=== PATIENT | male | born 1965 | race Caucasian/White ===

== ENCOUNTER 2018-11-14 05:12 | Inpatient (IN) | payer MEDICAID ==
[2018-11-10 12:09] LABS: BASOPHILS % (AUTO) 0.5 % (0-1); EOSINOPHILS # (AUTO) 0.2 X10'3 (0-0.9); EOSINOPHILS % (AUTO) 2.7 % (0-6); HEMATOCRIT 45.6 % (42.0-52.0); HEMOGLOBIN 15.1 g/dl (14.0-17.9); LYMPHOCYTES # (AUTO) 1.6 X10'3 (1.1-4.8); LYMPHOCYTES % (AUTO) 20.7 % (21-51); MEAN CORPUSCULAR HEMOGLOBIN 28.3 PG (27.0-31.0); MEAN CORPUSCULAR HGB CONC 33.1 g/dL (33.0-36.5); MEAN CORPUSCULAR VOLUME 85.6 FL (78-98); MONOCYTES # (AUTO) 0.6 X10'3 (0-0.9); MONOCYTES % (AUTO) 7.3 % (2-12); NEUTROPHILS # (AUTO) 5.3 X10'3 (1.8-7.7); NEUTROPHILS % (AUTO) 68.8 % (42-75); PLATELET COUNT 344 X10'3 (140-440); RED BLOOD COUNT 5.32 X10'6 (4.70-6.10); RED CELL DISTRIBUTION WIDTH 16.4 % (11.5-14.5); WHITE BLOOD COUNT 7.7 X10'3 (4.5-11.0)
[2018-11-10 12:37] LABS: ALBUMIN 3.2 G/DL (3.4-5.0); ANION GAP 10 (8-16); BLOOD UREA NITROGEN 21 MG/DL (7-18); BUN/CREATININE RATIO 19.8 (5.4-32.0); CALCIUM 9.6 MG/DL (8.5-10.1); CHLORIDE 101 MMOL/L (99-107); CREATININE 1.06 MG/DL (0.60-1.10); GLUCOSE 144 MG/DL (70-104); POTASSIUM 4.4 MMOL/L (3.5-5.1); SODIUM 136 MMOL/L (135-145); TOTAL CARBON DIOXIDE 24.9 MMOL/L (24-32); eGFR 73 ML/MIN
[2018-11-10 12:39] LABS: PARTIAL THROMBOPLASTIN TIME 43 SECONDS (22-32)
[~2018-11-14] VITALS: Ht 185.4 cm; Wt 121.8 kg
[2018-11-14] VITALS (13 sets, daily range): BP systolic 101–151; BP diastolic 63–98
[~2018-11-14 05:12] MED LIST: ENOX100D5 SUBCUT; LEVO500T2 PO; METF-950 PO; METR-159 PO; RIVA15TA PO; RIVA20TA PO; VALS40TA11 PO
[2018-11-14] MEDS ORDERED: diphenhydrAMINE 25mg capsule PO PRN ×2 (05:30→07:45)
[2018-11-14] MEDS ORDERED: LORazepam 0.5 MG tablet PO PRN (05:30)
[2018-11-14] MEDS: normal saline 1,000 ML IV SCH ×2 (05:58→09:37)
[2018-11-14] MEDS ORDERED: LIDOcaine 2% (20 mg/ml) 5ml cardiac syringe ONE (06:00)
[2018-11-14] MEDS ORDERED: papaverine 30 mg/ml 2ml inj. ONE (06:00)
[2018-11-14] MEDS ORDERED: methylPREDNISolone sod succ 1000mg vial ONE (06:00)
[2018-11-14] MEDS ORDERED: albumin (human) 25% 100 ML IV solution IV ONE (06:00)
[2018-11-14] MEDS ORDERED: potassium Cl 2 mEq/ml inj IV ONE (06:00)
[2018-11-14] MEDS ORDERED: heparin 1,000 units/ml 10ml inj ONE (06:00)
[2018-11-14] MEDS ORDERED: magnesium 1 GM/2 ML inj ONE (06:00)
[2018-11-14] MEDS ORDERED: calcium chloride 100 MG/1 ML inj IV ONE (06:00)
[2018-11-14] MEDS ORDERED: sodium bicarbonate (8.4%) 1 mEq/ml syringe ONE (06:00)
[2018-11-14] MEDS ORDERED: heparin 10,000 units/1 ML INJ ONE (06:00)
[2018-11-14] MEDS ORDERED: phenylephrine 10mg/ml inj. ONE (06:00)
[2018-11-14] MEDS ORDERED: aminocaproic acid 250 MG/1 ML inj. ONE (06:00)
[2018-11-14] MEDS ORDERED: WARF1TAB PO (06:03)
[2018-11-14] MEDS ORDERED: LOSA50TA64 PO (06:03)
[2018-11-14] MEDS ORDERED: ATOR10TA87 PO (06:03)
[2018-11-14 06:05] LABS: PARTIAL THROMBOPLASTIN TIME 33 SECONDS (22-32)
[2018-11-14] MEDS ORDERED: METF500T PO (06:09)
[2018-11-14] MEDS ORDERED: ENOX100S3 SQ (06:09)
[2018-11-14] MEDS ORDERED: iohexol 350MG/ML 100ml bottle IV ONE (06:13)
[2018-11-14] MEDS ORDERED: LIDOcaine 1% (10mg/ml)w/preservative injection 20ml MDV ONE (06:13)
[2018-11-14] MEDS ORDERED: fentaNYL/PF 50MCG/1 ML 2ML syringe ONE (06:14)
[2018-11-14] MEDS ORDERED: midazolam 2 mg/2 ml injection ONE (06:14)
[2018-11-14] MEDS ORDERED: ondansetron/PF 4mg/2ml inj IV PRN ×2 (07:10→07:45)
[2018-11-14] MEDS ORDERED: nitroGLYCERIN 0.4mg SUBLingual tab SL PRN (07:10)
[2018-11-14] MEDS ORDERED: insulin regular, human 100 UNIT in normal saline 100ml IV soln 100 ML IV SCH ×2 (07:38)
[2018-11-14] MEDS ORDERED: cefazolin/dext.iso 2gm/50ml 50 ML IV ONE (07:40)
[2018-11-14] MEDS ORDERED: gabapentin 400mg capsule PO ONE (07:40)
[2018-11-14] MEDS ORDERED: NUT.TX.IMPAIRED DIGEST FXN (Ensure Clear) 237 ML PO ONE (07:40)
[2018-11-14] MEDS ORDERED: insulin glargine (Lantus) pen - multi-dose SQ PRN (07:40)
[2018-11-14] MEDS ORDERED: dextrose 50%-water 50ml dispensing syringe IV PRN ×3 (07:40→10:15)
[2018-11-14] MEDS ORDERED: vancomycin/NS 1 GM ADD-VANTAGE 250 ML IV ONE (07:40)
[2018-11-14] MEDS ORDERED: MESSAGE TO NURSING PO ONE ×5 (07:40→10:00)
[2018-11-14] MEDS ORDERED: HYDROcodone/acetaminophen 5mg/325mg tablet PO PRN (07:45)
[2018-11-14] MEDS ORDERED: cefazolin/dext.iso 2gm/50ml 100 ML IV ONE (07:48)
[2018-11-14] MEDS ORDERED: atorvastatin 10mg tablet PO SCH (08:00)
[2018-11-14] MEDS ORDERED: losartan 50mg tablet PO SCH (08:00)
[2018-11-14] MEDS ORDERED: enoxaparin 100mg/ml syringe SQ SCH (08:00)
[2018-11-14] MEDS ORDERED: mupirocin 2% ointment 22GM NS SCH (08:00)
--- NOTE | 2018-11-14 08:51 | NUR ---
Problems reprioritized. Patient report given, questions answered & plan of care reviewed with ART, RN.
--- NOTE | 2018-11-14 09:09 | NUR ---
PATIENT TRANSFERRED TO ACCE UNIT BED 313 VIA GURNEY WITH ALL PERSONAL BELONGINGS. RECEIVING NURSE AT BEDSIDE. PATIENT MOVED OVER TO ACCE UNIT BED. REPOSITIONED FOR COMFORT. RIGHT GROIN SOFT AND NON PAINFUL TO PALPATION.
--- NOTE | 2018-11-14 09:25 | NUR ---
Pt arrived from . Pt oriented to room and placed on monitor. Pt call light within reach.
[2018-11-14 10:05] LABS: HEMATOCRIT 41.8 % (42.0-52.0); HEMOGLOBIN 13.8 g/dl (14.0-17.9); MEAN CORPUSCULAR HEMOGLOBIN 28.3 PG (27.0-31.0); MEAN CORPUSCULAR HGB CONC 33.1 g/dL (33.0-36.5); MEAN CORPUSCULAR VOLUME 85.6 FL (78-98); MEAN PLATELET VOLUME 8.9 FL (7.4-10.4); PLATELET COUNT 250 X10'3 (140-440); RED BLOOD COUNT 4.89 X10'6 (4.70-6.10); RED CELL DISTRIBUTION WIDTH 16.7 % (11.5-14.5)
[2018-11-14 10:14] LABS: HEMOGLOBIN A1C 7.6 % (4.5-6.2)
[2018-11-14] MEDS ORDERED: dextrose ORAL solution 15 GM/59 ML bottle PO PRN ×2 (10:15)
[2018-11-14] MEDS ORDERED: MESSAGE TO PHARMACY PO ONE (10:15)
[2018-11-14] MEDS ORDERED: glucagon, human recombinant 1mg kit SUBCUT PRN (10:15)
[2018-11-14] MEDS ORDERED: insulin Lispro (HumaLOG) vial - multi-dose SQ SCH (10:15)
[2018-11-14 10:21] LABS: ALBUMIN 2.9 G/DL (3.4-5.0); ANION GAP 7 (8-16); BLOOD UREA NITROGEN 16 MG/DL (7-18); BUN/CREATININE RATIO 16.5 (5.4-32.0); CALCIUM 8.6 MG/DL (8.5-10.1); CHLORIDE 103 MMOL/L (99-107); CREATININE 0.97 MG/DL (0.60-1.10); GLUCOSE 134 MG/DL (70-104); POTASSIUM 4.4 MMOL/L (3.5-5.1); SODIUM 136 MMOL/L (135-145); TOTAL CARBON DIOXIDE 25.6 MMOL/L (24-32); eGFR 80 ML/MIN
[2018-11-14 10:22] LABS: PARTIAL THROMBOPLASTIN TIME 31 SECONDS (22-32)
--- NOTE | 2018-11-14 14:49 | NUR ---
Respiratory paged for PFTs and ABG.
--- NOTE | 2018-11-14 15:05 | NUR ---
Vein mapping done, Xray done. RT will be here in a couple of hours.
[2018-11-14 16:36] LABS: ABG BASE EXCESS 3.3 mmol/L (-2.0-3.0); ABG HCO3 26.1 mmol/L (22.0-26.0); ABG OXYGEN SATURATION 96.5 % (95-98); ABG PH (T) 7.503 (7.350-7.450); ALLEN'S TEST Positive; FCOHb 0.8 % (0.5-1.5); FMetHb 0.2 % (0.3-1.12); FO2Hb 95.5 % (94-100); TOTAL HEMOGLOBIN 14.1 G/dl (14.0-18.0)
--- NOTE | 2018-11-14 18:00 | NUR ---
Patient in room MED 313. I have received report from Art, RN and had the opportunity to ask questions and assume patient care.
[2018-11-14 20:02] LABS: CLARITY,URINE CLEAR (Clear); COLOR,URINE YELLOW (Yellow); GLUCOSE, URINE NEGATIVE (Neg); KETONES,URINE NEGATIVE (Neg); LEUKOCYTE ESTERASE ,URINE NEGATIVE (Neg); NITRITES, URINE NEGATIVE (Neg); OCCULT BLOOD,URINE NEGATIVE (Neg); PH,URINE 6.5 (4.8-8.0); PROTEIN,URINE NEGATIVE (Neg)
[2018-11-14 20:04] LABS: UA COLLECTION TYPE VOIDED
[2018-11-14] MEDS ORDERED: insulin glargine (Lantus) pen - multi-dose SQ SCH (21:00)
[2018-11-15] VITALS (17 sets, daily range): BP systolic 107–134; BP diastolic 59–77
[2018-11-15] MEDS ORDERED: MESSAGE TO NURSING PO ONE ×2 (02:00→06:00)
[2018-11-15] MEDS ORDERED: famotidine 20mg tablet PO ONE (05:00)
[2018-11-15] MEDS ORDERED: LORazepam 2 mg/ml vial IV ONE (05:00)
[2018-11-15] MEDS ORDERED: ROPIVAcaine 0.5% (5mg/ml) 30ml vial ONE (05:09)
[2018-11-15 05:44] LABS: BASOPHILS % (AUTO) 0.3 % (0-1); EOSINOPHILS # (AUTO) 0.2 X10'3 (0-0.9); EOSINOPHILS % (AUTO) 3.2 % (0-6); HEMATOCRIT 43.7 % (42.0-52.0); HEMOGLOBIN 14.4 g/dl (14.0-17.9); LYMPHOCYTES # (AUTO) 1.2 X10'3 (1.1-4.8); LYMPHOCYTES % (AUTO) 16.7 % (21-51); MEAN CORPUSCULAR HEMOGLOBIN 28.4 PG (27.0-31.0); MEAN CORPUSCULAR HGB CONC 32.9 g/dL (33.0-36.5); MEAN CORPUSCULAR VOLUME 86.3 FL (78-98); MONOCYTES # (AUTO) 0.8 X10'3 (0-0.9); NEUTROPHILS % (AUTO) 68.8 % (42-75); PLATELET COUNT 243 X10'3 (140-440); RED BLOOD COUNT 5.07 X10'6 (4.70-6.10); RED CELL DISTRIBUTION WIDTH 16.6 % (11.5-14.5); WHITE BLOOD COUNT 7.2 X10'3 (4.5-11.0)
[2018-11-15] MEDS ORDERED: cefazolin/dext.iso 2gm/50ml 100 ML IV ONE (06:00)
[2018-11-15] MEDS ORDERED: vancomycin/NS 1 GM ADD-VANTAGE 250 ML IV ONE (06:00)
[2018-11-15] MEDS ORDERED: cefazolin/dext.iso 2gm/100ml 100 ML IV ONE (06:00)
[2018-11-15 06:08] LABS: ALBUMIN 3.1 G/DL (3.4-5.0); ANION GAP 9 (8-16); BLOOD UREA NITROGEN 17 MG/DL (7-18); BUN/CREATININE RATIO 14.9 (5.4-32.0); CALCIUM 8.9 MG/DL (8.5-10.1); CHLORIDE 101 MMOL/L (99-107); CREATININE 1.14 MG/DL (0.60-1.10); GLUCOSE 160 MG/DL (70-104); POTASSIUM 4.4 MMOL/L (3.5-5.1); SODIUM 135 MMOL/L (135-145); TOTAL CARBON DIOXIDE 25.5 MMOL/L (24-32); eGFR 67 ML/MIN
[2018-11-15] MEDS ORDERED: SUFENTANIL CITRATE 50 MCG/ML 2ml ampule IV ONE (06:18)
[2018-11-15] MEDS ORDERED: aminocaproic acid 250 MG/1 ML inj. ONE (06:20)
[2018-11-15] MEDS ORDERED: INSULIN R 100 UNIT in NS 100ML (1 UNIT/1 ML) BAG IV ONE (06:20)
[2018-11-15] MEDS ORDERED: nitroGLYCERIN in D5W 50mg/250ml (Tridil) infusion IV ONE (06:20)
[2018-11-15] MEDS ORDERED: isoflurane 100ml inhalation liquid IH ONE (06:20)
[2018-11-15] MEDS ORDERED: protamine sulf. 10mg/ml inj. IV ONE (06:20)
--- NOTE | 2018-11-15 06:20 | NUR ---
OR TEAM AT BEDSIDE. MEDS GIVEN ORDERED. PATIENT TAKEN DOWN TO CVOR IN BED.
[2018-11-15] MEDS ORDERED: LORazepam 2 mg/ml vial ONE (06:21)
--- NOTE | 2018-11-15 06:28 | NUR ---
Problems reprioritized. Patient report given, questions answered & plan of care reviewed with BARBARA Shrestha.
[2018-11-15] MEDS ORDERED: rocuronium 10mg/ml inj IV ONE ×3 (07:04→08:55)
[2018-11-15] MEDS ORDERED: phenylephrine 10mg/ml inj. ONE ×2 (07:06→08:55)
[2018-11-15] MEDS ORDERED: LIDOcaine 2% (20mg/ml) 5ml vial ONE (07:06)
[2018-11-15] MEDS ORDERED: propofol inj 20 ML IV ONE (07:06)
[2018-11-15 07:16] LABS: ABG BASE EXCESS -1.8 mmol/L (-2.0-3.0); ABG HCO3 21.6 mmol/L (22.0-26.0); ABG OXYGEN SATURATION 99.3 % (95-98); ABG PCO2 32.8 mmHg (35.0-45.0); ABG PH 7.437 (7.350-7.450); ABG PO2 194.4 mmHg (60.0-100.0); CL (ABG) 99 mmol/L (99-107); FCOHb 0.7 % (0.5-1.5); FMetHb 0.3 % (0.3-1.12); FO2Hb 98.3 % (94-100); GLUCOSE (ABG) 267 mg/dl (70-105); IONIZED CA (ABG) 1.14 mmol/L (1.03-1.32); K (ABG) 4.1 mmol/L (3.3-5.1); NA (ABG) 133 mmol/L (135-145); TOTAL HEMOGLOBIN 13.5 G/dl (14.0-18.0)
[2018-11-15 07:50] LABS: ABG BASE EXCESS -3.4 mmol/L (-2.0-3.0); ABG HCO3 21.2 mmol/L (22.0-26.0); ABG OXYGEN SATURATION 98.4 % (95-98); ABG PCO2 36.7 mmHg (35.0-45.0); CL (ABG) 102 mmol/L (99-107); FCOHb 0.4 % (0.5-1.5); FMetHb 0.2 % (0.3-1.12); FO2Hb 97.8 % (94-100); GLUCOSE (ABG) 166 mg/dl (70-105); IONIZED CA (ABG) 1.14 mmol/L (1.03-1.32); K (ABG) 3.8 mmol/L (3.3-5.1); NA (ABG) 132 mmol/L (135-145); TOTAL HEMOGLOBIN 12.7 G/dl (14.0-18.0)
[2018-11-15] MEDS ORDERED: ipratropium/albuterol 3ml nebule IH PRN (07:50)
[2018-11-15 08:20] LABS: ABG BASE EXCESS -1.9 mmol/L (-2.0-3.0); ABG OXYGEN SATURATION 99.7 % (95-98); ABG PH 7.378 (7.350-7.450); ABG PO2 468.1 mmHg (60.0-100.0); CL (ABG) 102 mmol/L (99-107); FCOHb 0.3 % (0.5-1.5); FMetHb 0.1 % (0.3-1.12); FO2Hb 99.3 % (94-100); GLUCOSE (ABG) 147 mg/dl (70-105); IONIZED CA (ABG) 1.05 mmol/L (1.03-1.32); K (ABG) 4.8 mmol/L (3.3-5.1); NA (ABG) 131 mmol/L (135-145); TOTAL HEMOGLOBIN 10.6 G/dl (14.0-18.0)
[2018-11-15 08:35] LABS: ABG BASE EXCESS VENOUS -4.9 mmol/L; ABG HCO3 VENOUS 20.6 mmol/L; ABG PCO2 VENOUS 39.7 mmHg; ABG PO2 VENOUS 55.9 mmHg; CL (ABG) 101 mmol/L (99-107); FCOHb VENOUS 0.4 %; FHHb VENOUS 12.9 %; FMetHb VENOUS 0.2 %; FO2Hb VENOUS 86.5 %; GLUCOSE (ABG) 136 mg/dl (70-105); IONIZED CA (ABG) 1.09 mmol/L (1.03-1.32); K (ABG) 4.4 mmol/L (3.3-5.1); NA (ABG) 132 mmol/L (135-145); TOTAL HEMOGLOBIN 10.8 G/dl (14.0-18.0)
[2018-11-15 08:50] LABS: ABG BASE EXCESS -0.7 mmol/L (-2.0-3.0); ABG HCO3 23.9 mmol/L (22.0-26.0); ABG OXYGEN SATURATION 99.8 % (95-98); ABG PCO2 39.1 mmHg (35.0-45.0); ABG PH 7.404 (7.350-7.450); ABG PO2 448.4 mmHg (60.0-100.0); CL (ABG) 101 mmol/L (99-107); FCOHb 0.3 % (0.5-1.5); FO2Hb 99.5 % (94-100); GLUCOSE (ABG) 134 mg/dl (70-105); K (ABG) 4.4 mmol/L (3.3-5.1); NA (ABG) 133 mmol/L (135-145); TOTAL HEMOGLOBIN 10.2 G/dl (14.0-18.0)
[2018-11-15 09:25] LABS: ABG BASE EXCESS -1.5 mmol/L (-2.0-3.0); ABG OXYGEN SATURATION 96.8 % (95-98); ABG PCO2 37.8 mmHg (35.0-45.0); ABG PH 7.402 (7.350-7.450); ABG PO2 93.6 mmHg (60.0-100.0); CL (ABG) 103 mmol/L (99-107); FCOHb 0.2 % (0.5-1.5); FMetHb 0.6 % (0.3-1.12); GLUCOSE (ABG) 127 mg/dl (70-105); K (ABG) 4.2 mmol/L (3.3-5.1); NA (ABG) 134 mmol/L (135-145); TOTAL HEMOGLOBIN 11.6 G/dl (14.0-18.0)
--- NOTE | 2018-11-15 09:30 | NUR ---
DM Consult: A1C 7.6. Hx T2DM and seizures r/t etoh; no tox this admit. Pt currently in OR for CABGx2. Will need DM/CABG eds once stable post-op. Addendum: 11/15/18 at [address] Amended: Links added.
[2018-11-15] MEDS ORDERED: nitroGLYCERIN-Tridil 50MG/D5W 250 ML IV PRN (09:49)
[2018-11-15] MEDS ORDERED: DOPamine 400mg/D5W 250ml 250 ML IV PRN (09:49)
[2018-11-15] MEDS ORDERED: sodium chloride 0.45% 1,000 ML IV SCH (09:49)
[2018-11-15] MEDS ORDERED: niCARDipine-NS 40mg/200ml IVPB 200 ML IV PRN (09:49)
[2018-11-15] MEDS ORDERED: acetaminophen 325mg tablet PO PRN (09:50)
[2018-11-15] MEDS ORDERED: normal saline 250ml IV soln 250 ML IV PRN (09:50)
[2018-11-15] MEDS ORDERED: insulin regular, human inj. 100 UNITS in normal saline 100ml IV soln 100 ML IV SCH ×2 (09:50)
[2018-11-15] MEDS ORDERED: sodium phosphate inj. 30 MMOL in dextrose 5%-water 250 ML IV PRN (09:50)
[2018-11-15] MEDS ORDERED: potassium Cl 20 mEq SR tablet PO PRN (09:50)
[2018-11-15] MEDS ORDERED: morphine 4 MG/ML inj SYRINge IV PRN (09:50)
[2018-11-15] MEDS ORDERED: HYDROcodone/acetaminophen 10/325mg tab PO PRN (09:50)
[2018-11-15] MEDS ORDERED: albumin (Human) 5% 250ml 250 ML IV PRN (09:50)
[2018-11-15] MEDS ORDERED: magnesium 4gm in 100ml NS 100 ML IV PRN (09:50)
[2018-11-15] MEDS ORDERED: metoclopramide 5 mg/ml inj IV PRN (09:50)
[2018-11-15] MEDS ORDERED: pantoprazole 40 MG vial IV ONE (09:50)
[2018-11-15] MEDS ORDERED: sodium phosphate inj. 15 MMOL in dextrose 5%-water 150 ML IV PRN (09:50)
[2018-11-15] MEDS ORDERED: Neutra Phos packet PO PRN (09:50)
[2018-11-15] MEDS ORDERED: dextrose 50%-water 50ml dispensing syringe IV PRN (09:50)
[2018-11-15] MEDS ORDERED: magnesium 2GM in 50ml NS 50 ML IV PRN (09:50)
--- NOTE | 2018-11-15 10:00 | NUR ---
Received to room 2041, accompanied by MDs and surgical crew. Placed on ventilator, to ekg monitor tech, arterial line and PA line pressure monitored. Chest tubes to suction at 20 cm. Jacques cath to gravity drainage. Dressings are dry and intact. See assessment record. All vasoactive drugs are infusing via central line.
[2018-11-15 10:20] LABS: ABG BASE EXCESS -1.2 mmol/L (-2.0-3.0); ABG HCO3 22.7 mmol/L (22.0-26.0); ABG OXYGEN SATURATION 95.5 % (95-98); ABG PCO2 (T) 35.5 mmHg (35.0-48.0); ABG PH (T) 7.423 (7.350-7.450); ABG PO2 (T) 79.3 mmHg (83-108); FCOHb 0.2 % (0.5-1.5); FMetHb 0.3 % (0.3-1.12); PEEP 5 cm H2O; RESPIRATORY RATE 14 b/min; RESPIRATORY RATE (OBSERVED) 14 b/min; TIDAL VOLUME 650 mL; TOTAL HEMOGLOBIN 13.5 G/dl (14.0-18.0)
[2018-11-15] MEDS ORDERED: albumin (Human) 5% 250ml 250 ML IV ONE ×2 (10:22→10:32)
[2018-11-15 10:32] LABS: BASOPHILS % (AUTO) 0.2 % (0-1); EOSINOPHILS # (AUTO) 0.1 X10'3 (0-0.9); EOSINOPHILS % (AUTO) 0.8 % (0-6); HEMATOCRIT 37.9 % (42.0-52.0); HEMOGLOBIN 12.5 g/dl (14.0-17.9); LYMPHOCYTES # (AUTO) 0.6 X10'3 (1.1-4.8); LYMPHOCYTES % (AUTO) 4.4 % (21-51); MEAN CORPUSCULAR HEMOGLOBIN 28.1 PG (27.0-31.0); MEAN CORPUSCULAR VOLUME 85.1 FL (78-98); MEAN PLATELET VOLUME 8.9 FL (7.4-10.4); MONOCYTES # (AUTO) 0.6 X10'3 (0-0.9); MONOCYTES % (AUTO) 4.1 % (2-12); NEUTROPHILS # (AUTO) 12.5 X10'3 (1.8-7.7); NEUTROPHILS % (AUTO) 90.5 % (42-75); PLATELET COUNT 205 X10'3 (140-440); RED BLOOD COUNT 4.45 X10'6 (4.70-6.10); RED CELL DISTRIBUTION WIDTH 16.5 % (11.5-14.5); WHITE BLOOD COUNT 13.8 X10'3 (4.5-11.0)
[2018-11-15 10:39] LABS: ALANINE AMINOTRANSFERASE 38 U/L (12-78); ALBUMIN 2.8 G/DL (3.4-5.0); ALBUMIN/GLOBULIN RATIO 0.8 (1.1-1.5); ALKALINE PHOSPHATASE 106 IU/L (46-116); ANION GAP 7 (8-16); ASPARTATE AMINO TRANSFERASE 29 U/L (10-37); BILIRUBIN,TOTAL 0.6 MG/DL (0.1-1.0); BLOOD UREA NITROGEN 15 MG/DL (7-18); BUN/CREATININE RATIO 14.3 (5.4-32.0); CALCIUM 8.3 MG/DL (8.5-10.1); CHLORIDE 105 MMOL/L (99-107); CREATININE 1.05 MG/DL (0.60-1.10); GLUCOSE 111 MG/DL (70-104); MAGNESIUM 2.6 MG/DL (1.5-2.4); PARTIAL THROMBOPLASTIN TIME 26 SECONDS (22-32); POTASSIUM 4.2 MMOL/L (3.5-5.1); SODIUM 137 MMOL/L (135-145); TOTAL CARBON DIOXIDE 24.7 MMOL/L (24-32); TOTAL PROTEIN 6.4 G/DL (6.4-8.2); eGFR 73 ML/MIN
[2018-11-15 11:12] LABS: ACTIVATED CLOTTING TIME 126 SEC (101-148)
[2018-11-15 11:23] LABS: ACT @ 1.70 U 326 SEC (193-297); ACT @ 2.84 U 491 SEC (260-420); BASELINE ACT 142 SEC (101-148)
[2018-11-15] MEDS: insulin regular, human 100 UNIT in normal saline 100ml IV soln 100 ML IV SCH ×4 (12:30→19:39)
[2018-11-15] MEDS: insulin Lispro (HumaLOG) vial - multi-dose SQ SCH ×2 (13:00→18:00)
[2018-11-15] MEDS: potassium Cl 20mEq/100mL bag 100 ML IV PRN ×2 (13:08→15:53)
[2018-11-15] MEDS: gabapentin 300mg capsule PO SCH ×2 (13:10→20:23)
[2018-11-15 13:25] LABS: ABG BASE EXCESS -7.6 mmol/L (-2.0-3.0); ABG HCO3 17.8 mmol/L (22.0-26.0); ABG OXYGEN SATURATION 97.5 % (95-98); ABG PCO2 (T) 35.9 mmHg (35.0-48.0); ABG PH (T) 7.314 (7.350-7.450); ABG PO2 (T) 109.4 mmHg (83-108); FMetHb 0.3 % (0.3-1.12); FO2Hb 97.2 % (94-100); MINUTE VOLUME 13 L/min; PEEP 5 cm H2O; RESPIRATORY RATE (OBSERVED) 14 b/min; TOTAL HEMOGLOBIN 12.7 G/dl (14.0-18.0)
--- NOTE | 2018-11-15 14:25 | NUR ---
Pt extubated and placed on 2 L/min O2 via nasal cannula, satting at 97%. Respirations are even and unlabored. Voice quality is clear.
[2018-11-15] MEDS: ceFAZolin 1GM/D5W- ADD-VANTAGE 50 ML IV SCH (16:52)
--- NOTE | 2018-11-15 17:05 | NUR ---
Pt dangled on edge of bed
[2018-11-15 17:12] LABS: BASOPHILS # (AUTO) 0.1 X10'3 (0-0.2); BASOPHILS % (AUTO) 0.4 % (0-1); EOSINOPHILS % (AUTO) 0.2 % (0-6); HEMATOCRIT 35.2 % (42.0-52.0); HEMOGLOBIN 11.5 g/dl (14.0-17.9); LYMPHOCYTES # (AUTO) 0.4 X10'3 (1.1-4.8); LYMPHOCYTES % (AUTO) 3.2 % (21-51); MEAN CORPUSCULAR HEMOGLOBIN 28.5 PG (27.0-31.0); MEAN CORPUSCULAR HGB CONC 32.8 g/dL (33.0-36.5); MEAN PLATELET VOLUME 9.2 FL (7.4-10.4); MONOCYTES # (AUTO) 0.4 X10'3 (0-0.9); MONOCYTES % (AUTO) 2.8 % (2-12); NEUTROPHILS # (AUTO) 12.3 X10'3 (1.8-7.7); NEUTROPHILS % (AUTO) 93.4 % (42-75); PLATELET COUNT 177 X10'3 (140-440); RED BLOOD COUNT 4.04 X10'6 (4.70-6.10); RED CELL DISTRIBUTION WIDTH 16.7 % (11.5-14.5); WHITE BLOOD COUNT 13.1 X10'3 (4.5-11.0)
[2018-11-15] MEDS: morphine 4 MG/ML inj SYRINge IV PRN ×2 (17:22→21:48)
[2018-11-15] MEDS: ondansetron/PF 4mg/2ml inj IV PRN ×2 (17:22→21:48)
[2018-11-15 17:23] LABS: ALBUMIN 3.4 G/DL (3.4-5.0); ANION GAP 9 (8-16); BLOOD UREA NITROGEN 15 MG/DL (7-18); BUN/CREATININE RATIO 13.2 (5.4-32.0); CALCIUM 8.5 MG/DL (8.5-10.1); CHLORIDE 107 MMOL/L (99-107); CREATININE 1.14 MG/DL (0.60-1.10); GLUCOSE 216 MG/DL (70-104); MAGNESIUM 1.9 MG/DL (1.5-2.4); PHOSPHORUS 2.7 MG/DL (2.3-4.5); SODIUM 138 MMOL/L (135-145); TOTAL CARBON DIOXIDE 21.7 MMOL/L (24-32); eGFR 67 ML/MIN
--- NOTE | 2018-11-15 17:39 | NUR ---
Pt became bradycardic with HR of 54. CI 1.4. Pacer turned on at rate of 80. Repeat CI 3.0
--- NOTE | 2018-11-15 18:15 | NUR ---
Patient in room ICU 2041. I have received report from BARBARA Comer (orientee) and BARBARA Shrestha) and had the opportunity to ask questions and assume patient care.
--- NOTE | 2018-11-15 18:17 | NUR ---
Problems reprioritized. Patient report given, questions answered & plan of care reviewed with BARBARA [place].
[2018-11-15] MEDS: vancomycin/NS 1 GM ADD-VANTAGE 250 ML IV SCH (20:23)
[2018-11-15] MEDS: docusate sod 100mg capsule PO SCH (20:23)
[2018-11-15] MEDS: mupirocin 2% nasal ointment 1gm UD NS SCH (20:23)
[2018-11-16] VITALS (24 sets, daily range): BP systolic 124–156; BP diastolic 67–94
[2018-11-16] MEDS: ceFAZolin 1GM/D5W- ADD-VANTAGE 50 ML IV SCH ×3 (00:05→17:05)
[2018-11-16 02:25] LABS: BASOPHILS % (AUTO) 0.1 % (0-1); EOSINOPHILS % (AUTO) 0 % (0-6); HEMATOCRIT 32.8 % (42.0-52.0); HEMOGLOBIN 10.8 g/dl (14.0-17.9); LYMPHOCYTES # (AUTO) 0.5 X10'3 (1.1-4.8); LYMPHOCYTES % (AUTO) 3.3 % (21-51); MEAN CORPUSCULAR HEMOGLOBIN 28.4 PG (27.0-31.0); MEAN CORPUSCULAR HGB CONC 32.8 g/dL (33.0-36.5); MEAN CORPUSCULAR VOLUME 86.5 FL (78-98); MEAN PLATELET VOLUME 9.1 FL (7.4-10.4); MONOCYTES # (AUTO) 0.8 X10'3 (0-0.9); MONOCYTES % (AUTO) 5.3 % (2-12); NEUTROPHILS # (AUTO) 13.7 X10'3 (1.8-7.7); NEUTROPHILS % (AUTO) 91.3 % (42-75); PLATELET COUNT 172 X10'3 (140-440); RED CELL DISTRIBUTION WIDTH 16.8 % (11.5-14.5)
[2018-11-16 02:39] LABS: ALANINE AMINOTRANSFERASE 32 U/L (12-78); ALBUMIN 3.2 G/DL (3.4-5.0); ALBUMIN/GLOBULIN RATIO 0.9 (1.1-1.5); ALKALINE PHOSPHATASE 88 IU/L (46-116); ANION GAP 8 (8-16); ASPARTATE AMINO TRANSFERASE 25 U/L (10-37); BILIRUBIN,TOTAL 0.5 MG/DL (0.1-1.0); BLOOD UREA NITROGEN 13 MG/DL (7-18); CALCIUM 7.9 MG/DL (8.5-10.1); CHLORIDE 106 MMOL/L (99-107); CREATININE 0.93 MG/DL (0.60-1.10); GLUCOSE 147 MG/DL (70-104); MAGNESIUM 1.6 MG/DL (1.5-2.4); PHOSPHORUS 2.8 MG/DL (2.3-4.5); POTASSIUM 3.9 MMOL/L (3.5-5.1); SODIUM 136 MMOL/L (135-145); TOTAL CARBON DIOXIDE 21.6 MMOL/L (24-32); TOTAL PROTEIN 6.6 G/DL (6.4-8.2); eGFR 84 ML/MIN
[2018-11-16 02:41] LABS: PARTIAL THROMBOPLASTIN TIME 31 SECONDS (22-32)
[2018-11-16] MEDS: potassium Cl 20mEq/100mL bag 100 ML IV PRN ×2 (02:50→04:49)
--- NOTE | 2018-11-16 06:48 | NUR ---
Problems reprioritized. Patient report given, questions answered & plan of care reviewed with LISA JIMENEZ.
--- NOTE | 2018-11-16 06:53 | NUR ---
Problems reprioritized. Patient report given, questions answered & plan of care reviewed with MATTHEW JIMENEZ.
[2018-11-16] MEDS: mupirocin 2% nasal ointment 1gm UD NS SCH ×2 (07:45→20:38)
[2018-11-16] MEDS: gabapentin 300mg capsule PO SCH ×3 (07:46→20:37)
[2018-11-16] MEDS: docusate sod 100mg capsule PO SCH ×2 (07:47→20:37)
[2018-11-16] MEDS: aspirin 81mg tablet.DR PO SCH (07:47)
[2018-11-16] MEDS: atorvastatin 10mg tablet PO SCH (07:47)
[2018-11-16] MEDS ORDERED: insulin glargine (Lantus) pen - multi-dose SQ SCH ×2 (08:00→21:00)
[2018-11-16] MEDS ORDERED: aspirin 325mg tablet, delayed-release (Ecotrin) PO SCH (08:00)
[2018-11-16] MEDS ORDERED: losartan 25mg tablet PO SCH ×2 (08:00→12:45)
--- NOTE | 2018-11-16 08:00 | NUR ---
[place]-Mohit discontinued by BARBARA Ny. No complications. Catheter intact. New dressing applied to site.
[2018-11-16] MEDS: vancomycin/NS 1 GM ADD-VANTAGE 250 ML IV SCH ×2 (08:49→20:37)
[2018-11-16] MEDS: insulin Lispro (HumaLOG) vial - multi-dose SQ SCH ×4 (08:58→20:59)
--- NOTE | 2018-11-16 10:00 | NUR ---
Right radial arterial line discontinued. Manual pressure applied for 5 minutes. Hemostasis achieved. No bleeding/hematoma. Site soft and intact. Dressing applied.
--- NOTE | 2018-11-16 10:45 | NUR ---
Patient dangled on side of bed. PT attempted to walk patient, but he became dizzy, diaphoretic, and nauseous. VSS. Helped patient lay back in bed. Nausea resolved and patient feels better. Will reattempt ambulation later today.
[2018-11-16] MEDS: HYDROcodone/acetaminophen 10/325mg tab PO PRN (15:32)
--- NOTE | 2018-11-16 18:35 | NUR ---
Patient in room ICU 2041. I have received report from Gavi JIMENEZ, and had the opportunity to ask questions and assume patient care.
[2018-11-16] MEDS ORDERED: dextrose ORAL solution 15 GM/59 ML bottle PO PRN ×2 (18:55)
[2018-11-16] MEDS ORDERED: MESSAGE TO PHARMACY PO ONE (18:55)
[2018-11-16] MEDS ORDERED: dextrose 50%-water 50ml dispensing syringe IV PRN ×2 (18:55)
[2018-11-16] MEDS ORDERED: glucagon, human recombinant 1mg kit SUBCUT PRN (18:55)
--- NOTE | 2018-11-16 20:15 | NUR ---
PT is resting in bed with no s/s of distress noted at this time. VSS. PT receiving 1L O2 to NC and tolerating well, O2 sat >95%. Jacques in place draining to gravity. Bed is locked and low. Call light is within reach. Will continue to monitor.
--- NOTE | 2018-11-16 22:30 | NUR ---
PT has been sleeping off and on. VSS. Bed is locked and low. Call light is within reach. Will continue to monitor.
[2018-11-17] VITALS (18 sets, daily range): BP systolic 89–131; BP diastolic 53–88
[2018-11-17] MEDS: ceFAZolin 1GM/D5W- ADD-VANTAGE 50 ML IV SCH (01:04)
[2018-11-17] MEDS: HYDROcodone/acetaminophen 10/325mg tab PO PRN ×3 (02:55→19:02)
--- NOTE | 2018-11-17 03:00 | NUR ---
PT continues to sleep off and on. Bed is locked and low. Call light is within reach. Will continue to monitor.
[2018-11-17 03:37] LABS: BASOPHILS % (AUTO) 0.1 % (0-1); EOSINOPHILS % (AUTO) 0 % (0-6); HEMATOCRIT 34.4 % (42.0-52.0); HEMOGLOBIN 11.2 g/dl (14.0-17.9); LYMPHOCYTES # (AUTO) 0.7 X10'3 (1.1-4.8); LYMPHOCYTES % (AUTO) 4.1 % (21-51); MEAN CORPUSCULAR HEMOGLOBIN 28.1 PG (27.0-31.0); MEAN CORPUSCULAR HGB CONC 32.4 g/dL (33.0-36.5); MEAN CORPUSCULAR VOLUME 86.7 FL (78-98); MEAN PLATELET VOLUME 9.6 FL (7.4-10.4); MONOCYTES # (AUTO) 1.7 X10'3 (0-0.9); MONOCYTES % (AUTO) 9.8 % (2-12); NEUTROPHILS # (AUTO) 15.2 X10'3 (1.8-7.7); PLATELET COUNT 162 X10'3 (140-440); RED BLOOD COUNT 3.97 X10'6 (4.70-6.10); RED CELL DISTRIBUTION WIDTH 17.1 % (11.5-14.5); WHITE BLOOD COUNT 17.6 X10'3 (4.5-11.0)
[2018-11-17 03:51] LABS: ANION GAP 7 (8-16); BLOOD UREA NITROGEN 16 MG/DL (7-18); CALCIUM 8.3 MG/DL (8.5-10.1); CHLORIDE 101 MMOL/L (99-107); GLUCOSE 112 MG/DL (70-104); MAGNESIUM 1.9 MG/DL (1.5-2.4); PHOSPHORUS 2.3 MG/DL (2.3-4.5); POTASSIUM 4.7 MMOL/L (3.5-5.1); SODIUM 134 MMOL/L (135-145); TOTAL CARBON DIOXIDE 26.4 MMOL/L (24-32); eGFR > 90 ML/MIN
[2018-11-17] MEDS ORDERED: magnesium 4gm in 100ml NS 100 ML IV PRN ×2 (05:05→07:05)
--- NOTE | 2018-11-17 06:42 | NUR ---
Problems reprioritized. Patient report given, questions answered & plan of care reviewed with Raul JIMENEZ.
[2018-11-17] MEDS ORDERED: potassium Cl 20 mEq SR tablet PO PRN ×2 (07:05)
[2018-11-17] MEDS ORDERED: magnesium 2GM in 50ml NS 50 ML IV PRN (07:05)
[2018-11-17] MEDS ORDERED: potassium CL 10mEq/100ml bag 100 ML IV PRN ×2 (07:05)
[2018-11-17] MEDS ORDERED: magnesium Cl slow-release 64mg tablet PO PRN (07:05)
[2018-11-17] MEDS: potassium Cl 20 mEq SR tablet PO SCH ×2 (07:35→20:00)
[2018-11-17] MEDS: K and/or MAG REPLACEMENT MC SCH (08:00)
[2018-11-17] MEDS: losartan 50mg tablet PO SCH (08:04)
[2018-11-17] MEDS: magnesium Cl slow-release 64mg tablet PO SCH ×2 (08:05→20:00)
[2018-11-17] MEDS: docusate sod 100mg capsule PO SCH ×2 (08:05→20:00)
[2018-11-17] MEDS: mupirocin 2% nasal ointment 1gm UD NS SCH (08:05)
[2018-11-17] MEDS: gabapentin 300mg capsule PO SCH (08:05)
[2018-11-17] MEDS: aspirin 81mg tablet.DR PO SCH (08:05)
[2018-11-17] MEDS: atorvastatin 10mg tablet PO SCH (08:05)
[2018-11-17] MEDS: pantoprazole 40mg Tablet.DR PO SCH (08:05)
[2018-11-17] MEDS ORDERED: MESSAGE TO PHARMACY PO ONE (10:15)
[2018-11-17] MEDS ORDERED: glucagon, human recombinant 1mg kit SUBCUT PRN (10:15)
[2018-11-17] MEDS ORDERED: dextrose ORAL solution 15 GM/59 ML bottle PO PRN ×2 (10:15)
[2018-11-17] MEDS ORDERED: dextrose 50%-water 50ml dispensing syringe IV PRN ×2 (10:15)
[2018-11-17] MEDS: insulin Lispro (HumaLOG) vial - multi-dose SQ SCH ×3 (10:19→18:59)
--- NOTE | 2018-11-17 13:27 | NUR ---
received report from Raul JIMENEZ
--- NOTE | 2018-11-17 14:32 | NUR ---
Jacques and CL removed according to policy and procedures with no complication.
--- NOTE | 2018-11-17 15:34 | NUR ---
pt arrived to floor via wheel chair and ambulated to the bed SBA.; VSS. pt attached to cardiac monitoring and oriented to room and call light. 2 RN skin check completed with Christine JIMENEZ. Addendum: 11/17/18 at 1535 by Jayshree Olguin RN pt arrived to floor at 1500
--- NOTE | 2018-11-17 17:50 | NUR ---
[place] documentation: I have reviewed and agree with interventions, assessments performed and documented by Sarah JIMENEZ
--- NOTE | 2018-11-17 18:33 | NUR ---
Patient in room MED 315. I have received report from Darion JIMENEZ and had the opportunity to ask questions and assume patient care.
[2018-11-17] MEDS: insulin glargine (Lantus) pen - multi-dose SQ SCH (21:45)
[2018-11-17] MEDS: magnesium hydroxide 30ml (MOM) UD suspension PO PRN (21:46)
[2018-11-18] VITALS (7 sets, daily range): BP systolic 128–150; BP diastolic 66–100
[2018-11-18] MEDS: HYDROcodone/acetaminophen 10/325mg tab PO PRN ×2 (05:18→14:22)
[2018-11-18 05:48] LABS: BASOPHILS % (AUTO) 0.1 % (0-1); EOSINOPHILS # (AUTO) 0.1 X10'3 (0-0.9); EOSINOPHILS % (AUTO) 0.6 % (0-6); HEMATOCRIT 33.5 % (42.0-52.0); HEMOGLOBIN 10.9 g/dl (14.0-17.9); LYMPHOCYTES # (AUTO) 1.6 X10'3 (1.1-4.8); LYMPHOCYTES % (AUTO) 11.9 % (21-51); MEAN CORPUSCULAR HEMOGLOBIN 28.5 PG (27.0-31.0); MEAN CORPUSCULAR HGB CONC 32.6 g/dL (33.0-36.5); MEAN CORPUSCULAR VOLUME 87.5 FL (78-98); MEAN PLATELET VOLUME 9.5 FL (7.4-10.4); MONOCYTES # (AUTO) 1.4 X10'3 (0-0.9); MONOCYTES % (AUTO) 10.5 % (2-12); NEUTROPHILS # (AUTO) 10.1 X10'3 (1.8-7.7); NEUTROPHILS % (AUTO) 76.9 % (42-75); PLATELET COUNT 168 X10'3 (140-440); RED BLOOD COUNT 3.83 X10'6 (4.70-6.10); RED CELL DISTRIBUTION WIDTH 17.7 % (11.5-14.5); WHITE BLOOD COUNT 13.2 X10'3 (4.5-11.0)
[2018-11-18 05:53] LABS: ALBUMIN 2.6 G/DL (3.4-5.0); ANION GAP 5 (8-16); BLOOD UREA NITROGEN 23 MG/DL (7-18); CALCIUM 8.4 MG/DL (8.5-10.1); CHLORIDE 101 MMOL/L (99-107); GLUCOSE 132 MG/DL (70-104); MAGNESIUM 1.9 MG/DL (1.5-2.4); POTASSIUM 4.3 MMOL/L (3.5-5.1); SODIUM 135 MMOL/L (135-145); eGFR 78 ML/MIN
--- NOTE | 2018-11-18 06:00 | NUR ---
Patient in room MED 315. I have received report from Mery and had the opportunity to ask questions and assume patient care.
[2018-11-18] MEDS: K and/or MAG REPLACEMENT MC SCH (08:00)
[2018-11-18] MEDS: pantoprazole 40mg Tablet.DR PO SCH (08:54)
[2018-11-18] MEDS: aspirin 81mg tablet.DR PO SCH (08:54)
[2018-11-18] MEDS: magnesium Cl slow-release 64mg tablet PO SCH ×2 (08:55→21:14)
[2018-11-18] MEDS: potassium Cl 20 mEq SR tablet PO SCH ×2 (08:56→21:14)
[2018-11-18] MEDS: losartan 50mg tablet PO SCH (08:57)
[2018-11-18] MEDS: magnesium hydroxide 30ml (MOM) UD suspension PO PRN (08:59)
[2018-11-18] MEDS: docusate sod 100mg capsule PO SCH ×2 (08:59→21:14)
[2018-11-18] MEDS: insulin Lispro (HumaLOG) vial - multi-dose SQ SCH ×3 (09:03→18:58)
--- NOTE | 2018-11-18 15:32 | NUR ---
F/u for nutrition consults: Pt seen at bedside provided with written and verbal nutrition after cardiac surgery education as well as DM education with referral to outpatient DM class and RD contact information. Pt currently on a NCS diet with documented 100% PO intake meeting nutrient needs however pt states he's still hungry following meals, pt agreeable to double protein TID, d/w dietary. Pt reports difficulty chewing d/t bad teeth and agrees to soft to chew food, d/w dietary. Pt denies food allergies. LBM 11/14, pt with routine Colace and MoM PRN given today. Pt states it is normal for him to have a BM q 5 days. Discussed nutrition therapy for constipation. Pt denies power pudding/prune juice/prunes at this time states his RN is already getting power pudding for him. Will continue to follow. Recommendations: 1) Continue NCS diet with advancement to heart healthy CHO controlled as medically indicated 2) Soft to chew food 3) Double protein TID 4) Routine bowel care 5) Wt per rx Addendum: 11/18/18 at [address] Amended: Links added.
--- NOTE | 2018-11-18 18:00 | NUR ---
Problems reprioritized. Patient report given, questions answered & plan of care reviewed with Kristen.
--- NOTE | 2018-11-18 18:25 | NUR ---
[place] documentation: I have reviewed and agree with interventions, assessments performed and documented by BARBARA Comer. [place] Medication Administration: For this medication-pass time frame, all medication were reviewed, dispensed, administered and documented per hospital policy by BARBARA Comer .
--- NOTE | 2018-11-18 18:30 | NUR ---
Patient in room MED 315. I have received report from BARBARA Comer (orienteer) and BARBARA [place] and had the opportunity to ask questions and assume patient care.
[2018-11-18] MEDS ORDERED: atorvastatin 10mg tablet PO SCH (21:00)
[2018-11-18] MEDS: insulin glargine (Lantus) pen - multi-dose SQ SCH (21:19)
[2018-11-19 02:00] VITALS: BP 134/72
--- NOTE | 2018-11-19 06:00 | NUR ---
[place] Medication Administration: For this medication-pass time frame, all medication were reviewed, dispensed, administered and documented per hospital policy by BARBARA Cruz.
--- NOTE | 2018-11-19 06:00 | NUR ---
[place]rienteer documentation: I have reviewed and agree with all interventions, assessments performed and documented by BARBARA Cruz .
--- NOTE | 2018-11-19 06:36 | NUR ---
Problems reprioritized. Patient report given, questions answered & plan of care reviewed with BARBARA Newell.
--- NOTE | 2018-11-19 06:50 | NUR ---
I have received report from Kristen JIMENEZ and Nancy JIMENEZ and had the opportunity to ask questions and assume patient care.
[2018-11-19 06:59] VITALS: BP 133/51
[2018-11-19 07:00] LABS: ALBUMIN 2.5 G/DL (3.4-5.0); ANION GAP 9 (8-16); BLOOD UREA NITROGEN 19 MG/DL (7-18); BUN/CREATININE RATIO 22.9 (5.4-32.0); CALCIUM 8.4 MG/DL (8.5-10.1); CHLORIDE 102 MMOL/L (99-107); CREATININE 0.83 MG/DL (0.60-1.10); GLUCOSE 169 MG/DL (70-104); MAGNESIUM 1.4 MG/DL (1.5-2.4); POTASSIUM 4.8 MMOL/L (3.5-5.1); SODIUM 134 MMOL/L (135-145); TOTAL CARBON DIOXIDE 22.8 MMOL/L (24-32); eGFR > 90 ML/MIN
[2018-11-19] MEDS: aspirin 81mg tablet.DR PO SCH (07:25)
[2018-11-19] MEDS: potassium Cl 20 mEq SR tablet PO SCH (07:25)
[2018-11-19] MEDS: magnesium Cl slow-release 64mg tablet PO SCH (07:25)
[2018-11-19] MEDS: magnesium hydroxide 30ml (MOM) UD suspension PO PRN (07:25)
[2018-11-19] MEDS: pantoprazole 40mg Tablet.DR PO SCH (07:25)
[2018-11-19] MEDS: docusate sod 100mg capsule PO SCH (07:25)
[2018-11-19] MEDS: losartan 50mg tablet PO SCH (07:25)
[2018-11-19] MEDS: K and/or MAG REPLACEMENT MC SCH (08:00)
[2018-11-19] MEDS: insulin Lispro (HumaLOG) vial - multi-dose SQ SCH ×2 (09:23→13:16)
[2018-11-19 09:53] LABS: BASOPHILS % (AUTO) 0.3 % (0-1); EOSINOPHILS # (AUTO) 0.1 X10'3 (0-0.9); EOSINOPHILS % (AUTO) 1.4 % (0-6); HEMATOCRIT 38.5 % (42.0-52.0); HEMOGLOBIN 12.8 g/dl (14.0-17.9); LYMPHOCYTES # (AUTO) 1.1 X10'3 (1.1-4.8); LYMPHOCYTES % (AUTO) 10.6 % (21-51); MEAN CORPUSCULAR HEMOGLOBIN 28.8 PG (27.0-31.0); MEAN CORPUSCULAR HGB CONC 33.4 g/dL (33.0-36.5); MEAN CORPUSCULAR VOLUME 86.3 FL (78-98); MONOCYTES # (AUTO) 0.8 X10'3 (0-0.9); MONOCYTES % (AUTO) 7.5 % (2-12); NEUTROPHILS # (AUTO) 8.4 X10'3 (1.8-7.7); NEUTROPHILS % (AUTO) 80.2 % (42-75); PLATELET COUNT 260 X10'3 (140-440); RED BLOOD COUNT 4.46 X10'6 (4.70-6.10); RED CELL DISTRIBUTION WIDTH 17.7 % (11.5-14.5); WHITE BLOOD COUNT 10.5 X10'3 (4.5-11.0)
[2018-11-19] MEDS: HYDROcodone/acetaminophen 10/325mg tab PO PRN (09:58)
[2018-11-19 11:00] VITALS: BP 139/88
--- NOTE | 2018-11-19 13:51 | NUR ---
Report called to [facility] [employer] [place].
== END 2018-11-19 14:10 | DRG 166 ==
LOC: SSTAY O 05:12 → MED 3N 09:26 → ICU 2S 11-15 10:09 → MED 3N 11-17 14:59
PROVIDERS: ADMIT Thoracic Surgery (Cardiothoracic Vascular Surgery); ATTEND Thoracic Surgery (Cardiothoracic Vascular Surgery)
PROC: 4A023N7 Measurement of Cardiac Sampling and Pressure, Left Heart, Percutaneous Approach (ICD-10-PCS; 2018-11-14)
PROC: B2111ZZ Fluoroscopy of Multiple Coronary Arteries using Low Osmolar Contrast (ICD-10-PCS; 2018-11-14)
PROC: B2151ZZ Fluoroscopy of Left Heart using Low Osmolar Contrast (ICD-10-PCS; 2018-11-14)
PROC: 02100Z9 Bypass Coronary Artery, One Artery from Left Internal Mammary, Open Approach (ICD-10-PCS; 2018-11-15)
PROC: B24BZZ4 Ultrasonography of Heart with Aorta, Transesophageal (ICD-10-PCS; 2018-11-15)
PROC: 5A1221Z Performance of Cardiac Output, Continuous (ICD-10-PCS; 2018-11-15)
PROC: 06BP4ZZ Excision of Right Saphenous Vein, Percutaneous Endoscopic Approach (ICD-10-PCS; 2018-11-15)
PROC: 02HV33Z Insertion of Infusion Device into Superior Vena Cava, Percutaneous Approach (ICD-10-PCS; 2018-11-15)
PROC: 02HP32Z Insertion of Monitoring Device into Pulmonary Trunk, Percutaneous Approach (ICD-10-PCS; 2018-11-15)
PROC: 021009W Bypass Coronary Artery, One Artery from Aorta with Autologous Venous Tissue, Open Approach (ICD-10-PCS; principal; 2018-11-15 06:20)
DX: I25.10 Atherosclerotic heart disease of native coronary artery without angina pectoris (principal); I50.43 Acute on chronic combined systolic (congestive) and diastolic (congestive) heart failure; I44.2 Atrioventricular block, complete; E11.610 Type 2 diabetes mellitus with diabetic neuropathic arthropathy; I11.0 Hypertensive heart disease with heart failure; E78.00 Pure hypercholesterolemia, unspecified; F12.90 Cannabis use, unspecified, uncomplicated; F17.210 Nicotine dependence, cigarettes, uncomplicated; I25.5 Ischemic cardiomyopathy; M54.9 Dorsalgia, unspecified; Z79.01 Long term (current) use of anticoagulants; Z82.3 Family history of stroke; Z83.3 Family history of diabetes mellitus; Z86.718 Personal history of other venous thrombosis and embolism; Z88.8 Allergy status to other drugs, medicaments and biological substances
CPT/HCPCS: 0232T; 36415; 36600; 71045; 71046; 74018; 80048; 80053; 81003; 82330; 82435; 82803; 82947; 82948; 83036; 83735; 84100; 84132; 84295; 85018; 85025; 85027; 85347; 85384; 85610; 85730; 86885; 86900; 86901; 86920; 87081; 93005; 93312; 93325; 93458; 93880; 93971; 94002; 94010; 94667; 94668; 94760; 97116; 97161; 97530; 99152; A4618; A4620; A6258; A6402; A6446; A6449; A7000; A7048; C1713; C1751; C1769; G0378; J0690; J1644; J1650; J1815; J2001; J2060; J2150; J2250; J2270; J2370; J2405; J2440; J2704; J2720; J2795; J2930; J3010; J3370; J3475; J3480; J3490; J7030; J7040; J7050; J7060; J7120; P9045; P9047; Q0163; Q9967

== ENCOUNTER 2018-12-25 16:30 | Emergency (ER) | payer MEDICAID ==
[~2018-12-25] VITALS: Ht 185.4 cm; Wt 109.1 kg
[~2018-12-25 16:30] MED LIST changes: +ATOR10TA87 PO; -ENOX100D5 SUBCUT; +ENOX100S3 SQ; -LEVO500T2 PO; +LOSA50TA64 PO; -METF-950 PO; +METF500T PO; -METR-159 PO; -RIVA15TA PO; -RIVA20TA PO; -VALS40TA11 PO; +WARF1TAB PO
[2018-12-25] MEDS ORDERED: ondansetron/PF 4mg/2ml inj IV ONE (17:30)
[2018-12-25] MEDS ORDERED: famotidine/PF 10 mg/ml inj IV ONE (17:30)
[2018-12-25] MEDS ORDERED: normal saline 1000ml 1,000 ML IV ONE (17:30)
[2018-12-25] MEDS ORDERED: pantoprazole 40 MG vial IV ONE (17:30)
[2018-12-25 18:03] LABS: BASOPHILS # (AUTO) 0.1 X10'3 (0-0.2); BASOPHILS % (AUTO) 0.6 % (0-1); EOSINOPHILS # (AUTO) 0.1 X10'3 (0-0.9); EOSINOPHILS % (AUTO) 0.8 % (0-6); HEMATOCRIT 40.9 % (42.0-52.0); HEMOGLOBIN 13.4 g/dl (14.0-17.9); LYMPHOCYTES # (AUTO) 0.8 X10'3 (1.1-4.8); LYMPHOCYTES % (AUTO) 7.9 % (21-51); MEAN CORPUSCULAR HEMOGLOBIN 28.4 PG (27.0-31.0); MEAN CORPUSCULAR HGB CONC 32.8 g/dL (33.0-36.5); MEAN CORPUSCULAR VOLUME 86.6 FL (78-98); MEAN PLATELET VOLUME 9.6 FL (7.4-10.4); MONOCYTES # (AUTO) 0.9 X10'3 (0-0.9); MONOCYTES % (AUTO) 9.5 % (2-12); NEUTROPHILS # (AUTO) 8.1 X10'3 (1.8-7.7); NEUTROPHILS % (AUTO) 81.2 % (42-75); PLATELET COUNT 314 X10'3 (140-440); RED BLOOD COUNT 4.73 X10'6 (4.70-6.10); RED CELL DISTRIBUTION WIDTH 17.1 % (11.5-14.5)
[2018-12-25] MEDS ORDERED: sucralfate 1gm/10ml UD suspension PO ONE (18:15)
[2018-12-25] MEDS ORDERED: mag hydrox/Alum hydrox/simeth 30ml oral suspension PO ONE (18:15)
[2018-12-25 18:19] LABS: ALANINE AMINOTRANSFERASE 17 U/L (12-78); ALBUMIN 3.5 G/DL (3.4-5.0); ALBUMIN/GLOBULIN RATIO 0.7 (1.1-1.5); ALKALINE PHOSPHATASE 169 IU/L (46-116); ANION GAP 8 (8-16); ASPARTATE AMINO TRANSFERASE 13 U/L (10-37); BILIRUBIN,TOTAL 0.5 MG/DL (0.1-1.0); BLOOD UREA NITROGEN 24 MG/DL (7-18); BUN/CREATININE RATIO 21.2 (5.4-32.0); CHLORIDE 104 MMOL/L (99-107); CREATININE 1.13 MG/DL (0.60-1.10); GLUCOSE 177 MG/DL (70-104); POTASSIUM 4.9 MMOL/L (3.5-5.1); SODIUM 138 MMOL/L (135-145); TOTAL CARBON DIOXIDE 25.8 MMOL/L (24-32); TOTAL PROTEIN 8.2 G/DL (6.4-8.2); eGFR 67 ML/MIN
[2018-12-25 18:24] LABS: PARTIAL THROMBOPLASTIN TIME 35 SECONDS (22-32)
[2018-12-25] MEDS ORDERED: proCHLORperazine 10 MG/2 ml inj IV ONE (18:25)
[2018-12-25] MEDS ORDERED: ONDA8TAB6 PO (19:06)
[2018-12-25] MEDS ORDERED: PANT-47 PO (19:06)
[2018-12-25 19:18] VITALS: BP 133/70
== END 2018-12-25 19:23 | disposition home or self-care (01) ==
LOC: ER 16:32
DX: K29.70 Gastritis, unspecified, without bleeding (principal); R91.1 Solitary pulmonary nodule; R79.1 Abnormal coagulation profile; R11.2 Nausea with vomiting, unspecified; Z95.1 Presence of aortocoronary bypass graft; Z88.8 Allergy status to other drugs, medicaments and biological substances; Z79.01 Long term (current) use of anticoagulants; Z79.84 Long term (current) use of oral hypoglycemic drugs; Z79.899 Other long term (current) drug therapy
CPT/HCPCS: 36415; 71045; 80053; 83880; 84484; 85025; 85610; 85730; 93005; 96361; 96374; 96375; 99284; C9113; J0780; J2405; J3490; J7030